=== PATIENT | female | born 1955 | race Caucasian/White ===

== ENCOUNTER 2018-12-29 13:54 | Outpatient (CLI) | payer OTHER ==
--- NOTE | 2018-12-29 14:43 | BD ---
EXAM: DEXA bone density examination HISTORY: 63-year-old postmenopausal female for screening COMPARISON: None FINDINGS: L1--bone mineral density 1.148 g/sq cm; T score 1.4 L2--bone mineral density 1.270 g/sq cm; T score 2.2 L3--bone mineral density 1.401 g/sq cm; T score 2.9 L4--bone mineral density 1.354 g/sq cm; T score 2.7 Total L1-L4--bone mineral density 1.300 g/sq cm; T score 2.3 Left femoral neck--bone mineral density0.813; T score -0.3 Total proximal left femur--bone mineral density 1.059; T score 1.0 IMPRESSION: Normal bone mineral density.
--- NOTE | 2018-12-30 08:49 | MMO ---
Bilateral MAMMO Bilat Screen [facility]. CLINICAL HISTORY: Patient is 63 years old and is seen for screening. The patient has the following family history of breast cancer: maternal aunt. VIEWS: The views performed were: bilateral craniocaudal with tomosynthesis and bilateral mediolateral oblique with tomosynthesis. FILMS COMPARED: The present examination has been compared to prior imaging studies performed at [facility] on 05/01/2014 and 08/01/2015, and at [facility] on 03/26/2010 and 07/27/2011. This study has been interpreted with the assistance of computer-aided detection. MAMMOGRAM FINDINGS: There are scattered fibroglandular densities. There are no suspicious masses, suspicious calcifications, or new areas of architectural distortion. IMPRESSION: THERE IS NO MAMMOGRAPHIC EVIDENCE OF MALIGNANCY. A ROUTINE FOLLOW-UP MAMMOGRAM IN 1 YEAR IS RECOMMENDED. THE RESULTS OF THIS EXAM WERE SENT TO THE PATIENT. ACR BI-RADS Category 1 - Negative MAMMOGRAPHY NOTE: 1. A negative mammogram report should not delay a biopsy if a dominant of clinically suspicious mass is present. 2. Approximately 10% to 15% of breast cancers are not detected by mammography. 3. Adenosis and dense breasts may obscure an underlying neoplasm. Reported by: Olesya ANTHONY Electonically Signed: [id number]
== END 2018-12-29 13:55 | disposition home or self-care (01) ==
LOC: BICMAMMO 13:54
PROVIDERS: ATTEND Obstetrics & Gynecology
DX: Z12.31 Encounter for screening mammogram for malignant neoplasm of breast (principal); Z13.820 Encounter for screening for osteoporosis; Z80.3 Family history of malignant neoplasm of breast
CPT/HCPCS: 77063; 77067; 77080